=== PATIENT | female | born 1945 | race Caucasian/White ===

== ENCOUNTER 2016-07-14 16:27 | Inpatient (IN) | payer MEDICARE, OTHER ==
[~2016-07-14] VITALS: Ht 157.5 cm; Wt 47.6 kg
--- NOTE | 2016-07-14 16:39 | NUR ---
RECEIVED TO ROOM 2202 AT THIS TIME FROM DR SMITH'S OFFICE VIA WHEELCHAIR. PT IS ALERT AND ORIENTED X4. OXYGEN SATURATION ON ARRIVAL WAS 71% ON ROOM AIR. PT PLACED ON 6L VIA NC FOR MAINTAIN OXYGEN SATURATION AT 92%. AT BEDSIDE. 22G IV SITED TO PT'S LEFT AC X1 ATTEMPT. BRISK BLOOD RETURN PRESENT AND LAB WORK DRAWN FROM IV SITE. FLU SWAB OBTAINED AND ALL LAB WORK TAKEN TO LAB AT THIS TIME. ORIENTED PT TO ROOM, CALL LIGHT IN REACH AND REMAINS AT BEDSIDE. ASSESSMENT AND HISTORY OBTAINED PER FLOWSHEET. WILL CONTINUE WITH PLAN OF CARE.
[2016-07-14 17:42] VITALS: BP 163/55; BMI 19.2
[2016-07-14] MEDS ORDERED: VENTOLIN HFA18 GM INH (17:58)
[2016-07-14] MEDS ORDERED: VYTORIN 10-20 M1 TAB PO (18:00)
[2016-07-14] MEDS ORDERED: CALAN SR240 MG PO (18:01)
[2016-07-14] MEDS ORDERED: ULTRAM50 MG PO (18:01)
[2016-07-14] MEDS ORDERED: FOLIC ACID1 MG PO (18:03)
[2016-07-14] MEDS ORDERED: METHOTREXATE2.5 MG PO (18:03)
[2016-07-14] MEDS ORDERED: GLUCOTROL XL 5 M5 MG PO (18:05)
[2016-07-14] MEDS ORDERED: PLAVIX75 MG PO (18:06)
[2016-07-14] MEDS ORDERED: ZANTAC150 MG PO (18:06)
[2016-07-14] MEDS ORDERED: ATIVAN0.5 MG PO (18:10)
[2016-07-14] MEDS ORDERED: ACETAMINOPHEN500 M1 PO (18:17)
[2016-07-14 19:03] LABS: BASOPHILS 0.1 % (0.0-2.0); EOSINOPHILS 0 % (0-7); HEMATOCRIT 32.7 % (36.0-48.0); HEMOGLOBIN 10.7 g/dL (12-16); IMMATURE GRANULOCYTES 0.3 % (0-5); MCH 29.2 pg (26.0-34.0); MCHC 32.7 g/dL (31.0-37.0); MCV 89.1 fL (80.0-100.0); MEAN PLATELET VOLUME 10.7 fL (7.4-10.4); MONOCYTES 6.9 % (2-11); NEUTROPHILS 86.7 % (40-80); PLATELET COUNT 286 10x3/uL (130-400); RBC 3.67 10x6/uL (4.00-5.40); RDW 16.8 % (11.5-14.5); WBC 15.6 10x3/uL (4.8-10.8)
[2016-07-14 19:28] LABS: ALBUMIN 2.8 g/dL (3.4-5.0); ANION GAP 13.2 mmol/L (8-16); BILIRUBIN - TOTAL 0.3 mg/dL (0.2-1.3); CALCIUM 8.5 mg/dL (8.5-10.1); CARBON DIOXIDE 27.2 mmol/L (21.0-32.0); CREATININE - SERUM 1.6 mg/dL (0.6-1.3); POTASSIUM - SERUM 3.4 mmol/L (3.5-5.1); PROTEIN - SERUM 8.1 g/dL (6.4-8.2)
[2016-07-14 20:00] VITALS: BP 106/40
--- NOTE | 2016-07-14 20:35 | NUR ---
MEDS GIVEN PER MAR, 8 UNITS INSULIN GIVEN PER SLIDING SCALE FOR BS OF 164, THOMAS WELL, DENIES NEEDS, CL IN REACH
[2016-07-15] VITALS: BP 114/56
[2016-07-15 04:00] VITALS: BP 104/42
--- NOTE | 2016-07-15 07:00 | NUR ---
REPORT RECIEVED ASSUMED CARE. PATIENT IN BED WITH IV INTACT. NO COMPLAINTS. CALL LIGHT WITHIN REACH.
[2016-07-15 08:31] LABS: BASOPHILS 0.1 % (0.0-2.0); EOSINOPHILS 0 % (0-7); HEMATOCRIT 32.4 % (36.0-48.0); HEMOGLOBIN 10.7 g/dL (12-16); IMMATURE GRANULOCYTES 0.2 % (0-5); LYMPHOCYTES 7.1 % (15-50); MCH 29.2 pg (26.0-34.0); MCV 88.3 fL (80.0-100.0); MEAN PLATELET VOLUME 10.4 fL (7.4-10.4); MONOCYTES 4.6 % (2-11); PLATELET COUNT 261 10x3/uL (130-400); RBC 3.67 10x6/uL (4.00-5.40); RDW 16.8 % (11.5-14.5)
[2016-07-15 08:37] LABS: WBC 8.5 10x3/uL (4.8-10.8)
[2016-07-15 08:38] VITALS: BP 118/64
[2016-07-15 09:00] LABS: ALBUMIN 2.7 g/dL (3.4-5.0); ANION GAP 12.6 mmol/L (8-16); BILIRUBIN - TOTAL 0.3 mg/dL (0.2-1.3); CALCIUM 8.8 mg/dL (8.5-10.1); CARBON DIOXIDE 27.6 mmol/L (21.0-32.0); CREATININE - SERUM 1.3 mg/dL (0.6-1.3); POTASSIUM - SERUM 3.2 mmol/L (3.5-5.1); PROTEIN - SERUM 7.5 g/dL (6.4-8.2)
[2016-07-15 12:26] VITALS: Ht 157.5 cm; Wt 47.6 kg
--- NOTE | 2016-07-15 12:30 | NUR ---
PATIENT SITTING UP IN BED EATING AT THIS TIME. FAMILY AT BEDSIDE. CALL LIGHT WITHIN REACH.
--- NOTE | 2016-07-15 12:37 | NUR ---
Patient Name: MADIHA MAYER Admission Status: Urgent Admission Date: 07-14-2016 : 1945 Admission Diagnosis:CHRONIC OBSTRUCTIVE PULMON DISEASE W ACUTE LOWER RESP I Attending: JEANNINE Current LOS: 1 Anticipated DC Date: 07-15-2016 Planned Disposition: Home Primary Insurance: MEDICARE A & B Discharge Planning Comments: CM MET WITH PATIENT AND SPOUSE (BUD) AT BEDSIDE. PATIENT STATES SHE RESIDES WITH HER SPOUSE IN A SINGLE STORY HOME WITH 3 STEPS. SHE STATES SHE IS INDEPENDENT OF ALL ADL'S BUT SOMETIMES USES A CANE AT HOME. SHE ALSO HAS A NEBULIZER SUPPLIED BY [facility]. SHE HAD NO HH SERVICES IN PLACE AT THE TIME OF THIS ADMISSION. SHE STATES SHE DOES NOT FEEL SHE WILL NEED HOME HEALTH OR ADDITIONAL DME UPON DISCHARGE AT THIS TIME. HER CAREGIVER WILL BE HER SPOUSE "BUD" ([phone]), WELL HER TRANSPORTATION HOME. HER PCP IS DR. SMITH. SHE USES [facility] ([place] #[phone]. SHE STATES HER HOME ENVIRONMENT IS SAFE TO RETURN TO. CM TO FOLLOW AND ASSIST WITH DISCHARGE PLANNING/NEEDS. Drapery Worker: Gris Beard * Is the patient Alert and Oriented? Yes 0 * How many steps to enter\\exit or inside your home? 3 0 * PCP SARAH 0 * [facility] ([place]) [phone] 0 * Preadmission Environment Home with Family 0 * ADLs Partial Dependent 0 * Partial ADLs (Assistance needed) Ambulation 0 * Equipment Cane Nebulizer 0 * Other Equipment DME SUPPLIED BY [facility] 0 * List name and contact numbers for known caregivers / representatives who currently or will assist patient after discharge: BUD MAYER-spouse ([phone]) 0 * Community resources currently utilized None 0 * Additional services required to return to the preadmission environment? No 0 * Can the patient safely return to the preadmission environment? Yes 0 * Has this patient been hospitalized within the prior 30 days at any hospital? No 0 Grand Total: 0
[2016-07-15 13:04] VITALS: BP 115/60
--- NOTE | 2016-07-15 16:29 | NUR ---
PATIENT SITTING UP IN BED WITH NO COMPLAINTS. FAMILY AT BEDSIDE. CALL LIGHT WITHIN REACH.
[2016-07-15 17:07] VITALS: BP 126/44
--- NOTE | 2016-07-15 19:40 | NUR ---
PT SITTING UP IN BED VISITING WITH SEVERAL FAMILY MEMBERS, ADVISED FAMILY TO FOLLOW ISOLATION PROCEDURES, ALL DECLINED, NO DISTRESS NOTED FROM PATIENT, DENIES NEEDS AT THIS TIME, FALL AND ISOLATION PROCEDURES IN PLACE, CL IN REACH, WILL MONITOR
[2016-07-15 20:00] VITALS: BP 137/64
--- NOTE | 2016-07-15 20:34 | NUR ---
ROUTINE MEDS GIVEN ALONG WITH 20 UNITS OF INSULIN FOR BS OF 334 PER SLIDING SCALE, THOMAS WELL, FAMILY IN ROOM, CL IN REACH
--- NOTE | 2016-07-15 23:15 | NUR ---
SITTING UP IN BED WATCHING TV, NO DISTRESS NOTED, DENIES NEEDS AT THIS TIME, FALL AND ISOLATION PRECAUTIONS IN PLACE, CL IN PLACE
[2016-07-16] VITALS: BP 122/60; BP 128/62
--- NOTE | 2016-07-16 01:01 | NUR ---
PRN ATIVAN GIVEN FOR INABILITY TO RELAX, THOMAS WELL, WILL MONITOR, CL IN REACH
[2016-07-16 04:00] VITALS: BP 133/70
--- NOTE | 2016-07-16 07:00 | NUR ---
REPORT RECIEVED ASSUMED CARE. PATIENT IN BED WITH IV INTACT. NO COMPLAINTS AT THIS TIME. CALL LIGHT WITHIN REACH.
[2016-07-16 08:40] VITALS: BP 117/46
[2016-07-16 09:24] LABS: BASOPHILS 0.1 % (0.0-2.0); EOSINOPHILS 0 % (0-7); HEMATOCRIT 30.3 % (36.0-48.0); HEMOGLOBIN 9.9 g/dL (12-16); IMMATURE GRANULOCYTES 0.2 % (0-5); LYMPHOCYTES 8.2 % (15-50); MCH 28.6 pg (26.0-34.0); MCHC 32.7 g/dL (31.0-37.0); MCV 87.6 fL (80.0-100.0); MEAN PLATELET VOLUME 10.2 fL (7.4-10.4); MONOCYTES 6.7 % (2-11); NEUTROPHILS 84.8 % (40-80); PLATELET COUNT 271 10x3/uL (130-400); RBC 3.46 10x6/uL (4.00-5.40); RDW 16.6 % (11.5-14.5); WBC 8.6 10x3/uL (4.8-10.8)
[2016-07-16 09:43] LABS: ALBUMIN 2.6 g/dL (3.4-5.0); ANION GAP 11.7 mmol/L (8-16); BILIRUBIN - TOTAL 0.29 mg/dL (0.2-1.3); CALCIUM 8.9 mg/dL (8.5-10.1); CARBON DIOXIDE 29.3 mmol/L (21.0-32.0); CREATININE - SERUM 1.4 mg/dL (0.6-1.3); PROTEIN - SERUM 7.6 g/dL (6.4-8.2)
[2016-07-16 12:43] VITALS: BP 145/57
[2016-07-16 16:26] VITALS: BP 129/57
--- NOTE | 2016-07-16 16:40 | NUR ---
PATIENT IV LEAKING. REMOVED WITH CATH TIP. RESTARTED IN RIGHT ARM X 1 STICK. POTASSIUM RESTARTED. CALL LIGHT WITHIN REACH.
[2016-07-16 19:00] VITALS: BP 130/57
--- NOTE | 2016-07-16 22:40 | NUR ---
PATIENT REPORT GIVEN TO BECKY CRESPO. PATIENT IN BED WITH IV INTACT. NO COMPLAINTS AT THIS TIME. CALL LIGHT WITHIN REACH.
--- NOTE | 2016-07-16 23:41 | NUR ---
EYES CLOSED RESPIRATIONS WITH EASE AND UNLABORED, O2 ON 4.5 L/M PER NC. PT IN DROPLET ISOLATION. SR UP X2 CALL LIGHT WITHIN REACH.
--- NOTE | 2016-07-17 01:54 | NUR ---
RESTING QUIETLY K+ RIDER COMPLETED IV CHANGED TO SALINE LOCK UP CARIDAD TO BR VOIDS WELL.
--- NOTE | 2016-07-17 04:46 | NUR ---
RESTING QUIETLY WITH EYES CLOSED. RESP DEEP EVEN UNLABORED. DENIES NEEDS OR PAIN. BED LOW CL IN REACH.
[2016-07-17 07:33] LABS: BASOPHILS 0.3 % (0.0-2.0); EOSINOPHILS 0 % (0-7); HEMATOCRIT 28.9 % (36.0-48.0); HEMOGLOBIN 9.3 g/dL (12-16); IMMATURE GRANULOCYTES 0.1 % (0-5); MCH 28.3 pg (26.0-34.0); MCHC 32.2 g/dL (31.0-37.0); MCV 87.8 fL (80.0-100.0); MEAN PLATELET VOLUME 9.9 fL (7.4-10.4); MONOCYTES 4.8 % (2-11); NEUTROPHILS 80.8 % (40-80); PLATELET COUNT 254 10x3/uL (130-400); RBC 3.29 10x6/uL (4.00-5.40); RDW 16.9 % (11.5-14.5); WBC 7.1 10x3/uL (4.8-10.8)
[2016-07-17 08:02] LABS: ALBUMIN 2.5 g/dL (3.4-5.0); BILIRUBIN - TOTAL 0.54 mg/dL (0.2-1.3); CALCIUM 8.7 mg/dL (8.5-10.1); CARBON DIOXIDE 28.4 mmol/L (21.0-32.0); CREATININE - SERUM 1.3 mg/dL (0.6-1.3)
[2016-07-17 08:08] LABS: ANION GAP 12.8 mmol/L (8-16); POTASSIUM - SERUM 4.2 mmol/L (3.5-5.1)
[2016-07-17 08:32] VITALS: BP 156/59
--- NOTE | 2016-07-17 10:10 | NUR ---
SCHEDULED MEDICATIONS ADMINISTERED AT THIS TIME. REMAINS IN DROPLET ISOLATION. ASSESSMENT PERFORMED PER FLOWSHEET. NO SCD'S FOR HISTORY OF DVT, SO PT IS IN PLAVIX AND IVC FILTER. UP AD CARIDAD. DENIES QUESTIONS OR CONCERNS AT THIS TIME. CALL LIGHT IN REACH, WILL CONTINUE WITH PLAN OF CARE.
[2016-07-17 11:42] VITALS: BP 134/88
--- NOTE | 2016-07-17 12:40 | NUR ---
NUTRITION MONITORING & EVAL CHART REVIEWED, PT REMAINS IN ISOLATION. TOLERATING DIABETIC DIET. WILL CONTINUE TO PROVIDE DIET. RD FOLLOWING
--- NOTE | 2016-07-17 13:00 | NUR ---
PT EXPERIENCIG SUDDEN ONSET OF NAUSEA WITH EMESIS AT THIS TIME. BLOOD SUGAR CHECKED AND 306 AT THIS TIME. EXPLAINED TO PT THAT NEW ONSET HYPERGLYCEMIA COULD HAVE TRIGGERED HER NAUSEA AND VOMITING. PT VERBALIZED UNDERSTANDING AND DENIES FEELING NAUSEOUS OR NEEDING ZOFRAN AT THIS TIME.
[2016-07-17 15:15] VITALS: BP 127/63
--- NOTE | 2016-07-17 16:50 | NUR ---
FSBS 43 AT THIS TIME. PT IS ASYMPTOMATIC. PROVIDED PT WITH 4 OUNCES OF ORANGE JUICE AND INSTA GLUCOSE PER ORDER. INSTRUCTED PT TO EAT MUCH OF HER DINNER SHE COULD TOLERATE AND WE WOULD RE-CHECK BLOOD SUGAR AFTER DINNER.
--- NOTE | 2016-07-17 18:34 | NUR ---
BLOOD SUGAR CHECKED AND 127 AT THIS TIME.
--- NOTE | 2016-07-17 21:45 | NUR ---
PATIENT RESTING IN BED. NO SIGNS OF DISTRESS NOTED. SCHEDULED MEDS GIVEN. SHIFT ASSESSMENT COMPLETED. DENIES ANY NEEDS AT THIS TIME. BED LOW. CALL LIGHT IN REACH
[2016-07-18] VITALS: BP 109/59
--- NOTE | 2016-07-18 06:07 | NUR ---
PT REMAINS IN DROPLET ISOLATION. PT IS ASLEEP WITH EASY RESPIRATIONS AND NO DISTRESS NOTED. THE BED IS LOW, RAILS UP X'S 2 WITH THE CALL LIGHT AT HAND.
[2016-07-18 07:01] LABS: BASOPHILS 0.2 % (0.0-2.0); EOSINOPHILS 0 % (0-7); HEMATOCRIT 27.8 % (36.0-48.0); IMMATURE GRANULOCYTES 0.5 % (0-5); LYMPHOCYTES 11.7 % (15-50); MCH 28.6 pg (26.0-34.0); MCHC 32.4 g/dL (31.0-37.0); MCV 88.3 fL (80.0-100.0); MEAN PLATELET VOLUME 9.9 fL (7.4-10.4); MONOCYTES 5.9 % (2-11); NEUTROPHILS 81.7 % (40-80); PLATELET COUNT 241 10x3/uL (130-400); RBC 3.15 10x6/uL (4.00-5.40); RDW 17.2 % (11.5-14.5); WBC 5.6 10x3/uL (4.8-10.8)
[2016-07-18 07:17] LABS: ALBUMIN 2.4 g/dL (3.4-5.0); ANION GAP 10.4 mmol/L (8-16); BILIRUBIN - TOTAL 0.45 mg/dL (0.2-1.3); CALCIUM 8.5 mg/dL (8.5-10.1); CARBON DIOXIDE 29.7 mmol/L (21.0-32.0); CREATININE - SERUM 1.1 mg/dL (0.6-1.3); PROTEIN - SERUM 6.6 g/dL (6.4-8.2)
[2016-07-18 07:18] LABS: POTASSIUM - SERUM 5.1 mmol/L (3.5-5.1)
[2016-07-18 07:38] VITALS: BP 120/61
--- NOTE | 2016-07-18 08:00 | NUR ---
AWAKE AND ALERT AT THIS TIME. OXYGEN ON 3.5L VIA NC. ASSESSMENT PERFORMED PER FLOWSHEET. PT REMAINS IN DROPLET ISOLATION. DENIES PAIN OR NEEDS AT THIS TIME. AMBULATES INDEPENDENTLY. SRX2 WITH BED IN LOWEST POSITION AND WHEELS LOCKED. CALL LIGHT IN REACH, WILL CONTINUE WITH PLAN OF CARE.
--- NOTE | 2016-07-18 09:08 | NUR ---
SCHEDULED MEDICATIONS ADMINISTERED AT THIS TIME. DENIES NEEDS AT THIS TIME. CALL LIGHT IN REACH, WILL CONTINUE WITH PLAN OF CARE.
[2016-07-18 11:18] VITALS: BP 127/40
--- NOTE | 2016-07-18 11:38 | NUR ---
SCHEDULED MEDICATIONS ADMINISTERED AT THIS TIME. NO INSULIN NEEDED PER SLIDING SCALE. DENIES NEEDS AT THIS TIME. CALL LIGHT IN REACH, WILL CONTINUE WITH PLAN OF CARE.
[2016-07-18 15:08] VITALS: BP 126/68
[2016-07-18 19:00] VITALS: BP 114/49
[2016-07-19] VITALS: BP 100/36
--- NOTE | 2016-07-19 01:29 | NUR ---
RESTING WITH EYES CLOSED, NO DISTRESS NOTED, FALL AND ISOLATION PRECAUTIONS IN PLACE, CL IN REACH
[2016-07-19 04:00] VITALS: BP 109/40
--- NOTE | 2016-07-19 07:40 | NUR ---
PATIENT IS AWAKE, ALERT AND ORIENTED X'S 4. RESPIRATIONS ARE EVEN AND UNLABORED ON 2L/MIN OXYGEN VIA NASAL CANNULA. PATIENT IS VERY PLEASENT, SMILING. PATIENT STATED SHE IS FEELING BETTER THIS MORNING. THERE IS A HUMIDIFIER HOOKED TO THE NASAL CANNULA, WITHOUT WATER IN IT. REPLACED WITH A NEW HUMIDIFIER. BROUGHT PATIENT A CUP OF ICE WATER. PATIENT DENIES FURTHER NEEDS AT THIS TIME. BED IN LOWEST POSITION, CALL LIGHT IN REACH. BED RAILS UP X'S 2.
[2016-07-19 08:21] VITALS: BP 109/41
[2016-07-19 11:51] VITALS: BP 120/49
[2016-07-19 12:14] LABS: BASOPHILS 0 % (0.0-2.0); EOSINOPHILS 0 % (0-7); HEMATOCRIT 28.3 % (36.0-48.0); HEMOGLOBIN 9.1 g/dL (12-16); IMMATURE GRANULOCYTES 0.6 % (0-5); LYMPHOCYTES 16.6 % (15-50); MCH 28.8 pg (26.0-34.0); MCHC 32.2 g/dL (31.0-37.0); MCV 89.6 fL (80.0-100.0); MEAN PLATELET VOLUME 9.3 fL (7.4-10.4); NEUTROPHILS 74.8 % (40-80); PLATELET COUNT 262 10x3/uL (130-400); RBC 3.16 10x6/uL (4.00-5.40); RDW 17.5 % (11.5-14.5)
[2016-07-19] MEDS ORDERED: IPRAT-ALBUT 0.5-3 ML UPD (12:15)
[2016-07-19] MEDS ORDERED: PREDNISONE20 MG PO (12:21)
[2016-07-19 12:39] LABS: ALBUMIN 2.4 g/dL (3.4-5.0); ANION GAP 11.7 mmol/L (8-16); BILIRUBIN - TOTAL 0.47 mg/dL (0.2-1.3); CALCIUM 8.2 mg/dL (8.5-10.1); CARBON DIOXIDE 32.2 mmol/L (21.0-32.0); CREATININE - SERUM 1.2 mg/dL (0.6-1.3); POTASSIUM - SERUM 4.9 mmol/L (3.5-5.1); PROTEIN - SERUM 6.7 g/dL (6.4-8.2)
--- NOTE | 2016-07-19 14:23 | NUR ---
REMOVED NASAL CANNULA TO ASSESS OXYGEN SATURATION ON ROOM AIR. PATIENT IN BED. RESTING.
--- NOTE | 2016-07-19 14:37 | NUR ---
OXYGEN SATURATION 87% ON ROOM AIR AT REST. PUT NASAL CANNULA BACK ON, 2L/MIN.
--- NOTE | 2016-07-19 16:05 | NUR ---
Spoke with patient's nurse Roberta regarding need for RA Sat/home o2. KT arranged portable O2, home concentrator from [facility]. Patient's RA Sat @ rest is 87%. Patient states she has a Nebulizer prior to admit. Spouse will drive patient home. Both voice no other needs at this time. IMM signed per spouse. Ai Rubio RN, CM
--- NOTE | 2016-07-19 16:31 | NUR ---
CHECKED PATIENT'S FS, IT IS LOW. GAVE PATIENT 3 SHEILA CRACKERS SANDWHICHES WITH PEANUT BUTTER. AND 4OZ OF ORANGE JUICE. EDUCATED PATIENT ON SIGNS OF LOW BLOOD SUGAR. PATIENT VERBALIZED UNDERSTANDING. DISCHARGE INSTRUCTIONS COMPLETED WITH PATIENT. D/C IV WITH CATH INTACT.
--- NOTE | 2016-07-19 16:45 | NUR ---
PATIENT LEFT VIA WHEECHAIR. TOOK PATIENT OUT TO THE FRONT WITH PORTABLE OXYGEN ON AT 2L/MIN NASAL CANNULA. WAITED UNTIL PATIENT GOT INTO THE VEHICLE BEFORE I LEFT.
== END 2016-07-19 16:45 | disposition home or self-care (01) | DRG 190 ==
LOC: D.MS 16:27
PROVIDERS: ADMIT Family Medicine
DX: J44.0 Chronic obstructive pulmonary disease with (acute) lower respiratory infection (principal); J10.00 Influenza due to other identified influenza virus with unspecified type of pneumonia; J44.1 Chronic obstructive pulmonary disease with (acute) exacerbation; E87.6 Hypokalemia; I12.9 Hypertensive chronic kidney disease with stage 1 through stage 4 chronic kidney disease, or unspecified chronic kidney disease; E11.22 Type 2 diabetes mellitus with diabetic chronic kidney disease; N18.3 Chronic kidney disease, stage 3 (moderate); F17.200 Nicotine dependence, unspecified, uncomplicated